=== PATIENT | female | born 1940 | race Caucasian/White ===

== ENCOUNTER → 2024-08-16 10:52 | Outpatient (REF) | payer MEDICARE, OTHER, SELFPAY | LOC: RAD 10:52 | PROVIDERS: ATTENDING PHYSICIAN Physician Assistant Medical; OTHER PHYSICIAN Anesthesiology Pain Medicine | DX: M54.16 Radiculopathy, lumbar region (principal); G89.29 Other chronic pain | CPT/HCPCS: 72072; 72110; 73502 ==

== ENCOUNTER 2024-10-25 08:19 | Emergency (ER) | payer MEDICARE, OTHER, SELFPAY ==
[2024-10-25 08:26] LABS: Glucose - Point of Care 169 mg/dl (70-99)
[2024-10-25 08:27] VITALS: BP 148/62
[2024-10-25 08:49] LABS: Hematocrit 40.4 % (37.0-47.0); Hemoglobin 13.6 g/dL (12.0-16.0); Mean Corp Hgb Conc. 33.7 g/dL (33.0-37.0); Mean Corpuscular Volume 100.2 fL (81.0-99.0); Nucleated Red Blood Cells % 0 %; Platelet Count 221 10^3/uL (130-400); Red Cell Dist. Width 15.3 % (11.5-14.5); Urine Character Clear (Clear)
--- NOTE | 2024-10-25 08:52 | ED.GENMED ---
History of Present Illness
General
Chief Complaint: Change Level of Consciousness
Source: patient, family and ambulance crew
Exam Limitations: none
Time Seen by Provider: 10/25/24 08:27
Nursing documentation reviewed up to this point in time: agreed with
History of Present Illness
History of Present Illness:
83-year-old female presenting to the emergency department from home after she did not episode where she was not answering questions from her brother. Patient does have early dementia according to the brother this morning woke up was acting herself
and was able to get dressed and come down for breakfast. She has had elevated sugar levels over the past few days and recently restarted her insulin after the mother spoke with the airport operations coordinator yesterday. Additionally restarted her blood
pressure medications yesterday, hydralazine that she had not taken for multiple weeks. During breakfast she did not respond but otherwise did not appear to be in any distress for roughly 15 minutes and then EMS was called. She is not responding
and answering all questions. She claims that during the event she was aware what was going on but did not want to answer questions because she was 'sick of it'
Review of Systems
Review of Systems
Allergies reviewed?: Yes
All Other Systems: ROS reviewed and negative except as documented in HPI and ROS
Phy Exam
Physical Exam
Physical Exam:
GENERAL: Alert , in no apparent distress
EYE: pupils equal and reactive
NECK: Supple, no significant adenopathy.
ENT: o/p clr, mmm.
CARDIAC: Regular rate and rhythm .
LUNGS: Clear breath sounds bilaterally, no acute respiratory distress, no wheezes/rales/rhonchi
ABDOMEN: Soft, without focal tenderness, no r/g, no cvat
NEUROLOGICAL: Alert and oriented, no focal neuro deficits
SKIN: Warm and dry, skin intact.
MUSCULOSKELETAL: No edema, well perfused.
PSYCH: Normal and appropriate interaction.
Course
Orders/Labs/Results
Orders:
Orders
10/25/24 08:26
EKG [Electrocardiogram (*1)] Urgent
Reason for Study: Vertigo / Dizzy
10/25/24 08:27
EKG- Treatment ONCE
10/25/24 08:34
Complete Blood Count/With Diff Urgent
Comprehensive Metabolic Panel Urgent
Urinalysis Reflex To Culture Urgent
Date Specimen was Collected: 10/25/24
Time Specimen was Collected: 08:31
Urine Microscopic Reflex Cult Urgent
10/25/24 08:48
CT Head W/o Iv Contrast Urgent
Comment:
Reason For Exam: AMS
Abnormal Lab Results
10/25/24 10/25/24
08:24 08:34
WBC 12.4 H 10^3/uL
(4.8-10.8)
RBC 4.03 L 10^6/uL
(4.20-5.40)
MCV 100.2 H fL
(81.0-99.0)
MCH 33.7 H pg
(27.0-31.0)
RDW 15.3 H %
(11.5-14.5)
Absolute Neuts (auto) 8.6 H 10^3/uL
(1.4-6.5)
Absolute Monos (auto) 1.2 H 10^3/uL
(0.1-0.6)
Lymphocytes % 19.5 L %
(20.5-51.1)
BUN 53 H mg/dl
(7-17)
Creatinine 1.1 H mg/dL
(0.6-1.0)
Glucose 231 H mg/dl
(70-99)
Urine Glucose 1+ A
(Negative)
Urine Albumin (Reflex) 2+ A
(Neg - Trace)
POC Glucose 169 H mg/dl
(70-99)
10/25/24 08:34
10/25/24 08:34
Vital Signs
Initial and Last Documented VS:
Initial Vital Signs
Temp Pulse Resp Pulse Ox
97.6 F 61 18 98
10/25/24 08:24 10/25/24 08:24 10/25/24 08:24 10/25/24 08:24
Last Documented Vital Signs
Temp Pulse Resp BP Pulse Ox
97.6 F 61 11 138/55 98
10/25/24 08:24 10/25/24 11:15 10/25/24 11:15 10/25/24 11:00 10/25/24 11:15
MDM/Problems Addressed
MDM/Problems Addressed:
83-year-old female presenting to the emergency department today with concerns of an episode where she was not answering questions this morning. Has had some difficulty with control of her blood pressure and sugar levels over the past few days. On
arrival of EMS her blood pressure was in the 90s over 60s sugar level in the 100s. Vital signs normal on arrival patient no distress answering all questions here she claims that she was aware when she was not answering questions and claims that she
decided to not answer questions due to her brother asking 'too many'. Otherwise here at reassessment patient feeling much better back to her normal self labs without any specific emergent findings other than potentially a slight dehydration, CT
scan was normal was able to drink fluids here otherwise stable for discharge return precautions given.
*Pulse Oximetry
SaO2: 98
Oxygen Mode of Delivery: Room air
Patient hypoxic: no (98)
*Critical Care Note
Total Time (30-74mins, 75-104mins- exclusive of procedures): Not Applicable
ED Attending Note
-
Portions of this chart may have been created with voice recognition software.� Occasional wrong word or��sound alike� substitutions may have occurred due to the inherent limitations of voice recognition software.
Discharge Plan
Departure
Patient Disposition: Home (Routine Discharge)
Date of Disposition: 10/25/24
Time of Disposition: 11:40
Patient with high blood pressure during this ER visit?: No
Condition: Good
Covid-19: Not Applicable
Discharge Problem:
AMS (altered mental status)
Instructions: Altered Mental Status (DC)
Prescriptions:
No Action
hydralazine 25 mg Tablet
25 mg PO TID
garlic 300 mg Capsule
300 mg PO DAILY
atorvastatin [Lipitor] 80 mg Tablet
80 mg PO HS
acetaminophen [Tylenol] 325 mg Tablet
650 mg PO Q6HPRN PRN (Reason: mild pain)
carvedilol [Coreg] 6.25 mg Tablet
6.25 mg PO BID
trazodone 50 mg Tablet
50 mg PO HS
clopidogrel [Plavix] 75 mg Tablet
75 mg PO DAILY
tramadol 50 mg Tablet
50 mg PO BID
pramipexole 0.5 mg Tablet
0.5 mg PO HS
fosinopril 40 mg Tablet
40 mg PO DAILY
cholecalciferol (vitamin D3) [Vitamin D3] 50 mcg (2,000 unit) Tablet
50 mcg PO DAILY
PreserVision AREDS 2,148 mcg-113 mg-45 mg-17.4mg Tablet
1 tab PO DAILY
melatonin 10 mg Tablet
20 mg PO HS
mirabegron [Myrbetriq] 50 mg Tablet Extended Release 24 Hr
50 mg PO DAILY
Patient Own Insulins Pump
1 sliding scale dose SC .VIA NOVOLOG
pantoprazole [Protonix] 40 mg Tablet,Delayed Release (Dr/Ec)
40 mg PO HS
levothyroxine [Synthroid] 150 mcg Tablet
150 mcg PO SUMOTUTHFRSA
levothyroxine [Synthroid] 150 mcg Tablet
75 mcg PO WE
gabapentin 300 mg Capsule
300 mg PO HS
Referrals:
Ruy Kirkland PA-C [Family Provider, Family Practice]
Activity Restrictions/Additional Instructions:
You came to the emergency department today with concerns of an episode of altered mental status. Here you have a reassuring assessment. Please feel closely with the primary care doctor. Return for any worsening, new or concerning symptoms.
Interventions
Interventions:
*Risk Screen - Suicide Last Done: 10/25/24 10:25
*General Assessment Last Done: 10/25/24 10:25
*Neglect/Abuse Screening Last Done: 10/25/24 10:25
*ED COVID-19 Vaccine History Last Done: 10/25/24 11:24
ED- Cardiac Assessment Last Done: 10/25/24 10:25
ED- Neurological Assessment Last Done: 10/25/24 10:25
ED-Psychological Assessment Last Done: 10/25/24 10:26
ED- Pulmonary Assessment Last Done: 10/25/24 10:25
Discharge Date and Time
Print Language: GUYANESE
[2024-10-25 09:00] LABS: ALT (SGPT) 24 U/L (0-35); AST (SGOT) 29 U/L (14-36); Albumin 4.3 g/dl (3.5-5.0); Alkaline Phosphatase 72 U/L (38-126); Blood Urea Nitrogen 53 mg/dl (7-17); Calcium 10.0 mg/dl (8.4-10.2); Carbon Dioxide 29 mmol/L (22-30); Chloride 100 mmol/L (98-107); Glucose 231 mg/dl (70-99); Potassium 4.3 mmol/L (3.5-5.1); Sodium 135 mmol/L (135-145); Total Protein 7.2 g/dl (6.3-8.2); eGFR 49.55
[2024-10-25 09:08] LABS: Urine Red Blood Cell 0-2 /HPF (0-2); Urine White Cell 0-2 /HPF (0-5)
[2024-10-25 10:00] VITALS: BP 122/77
[2024-10-25 10:04] VITALS: BP 135/65
[2024-10-25 11:00] VITALS: BP 138/55
== END 2024-10-25 11:52 | disposition home or self-care (01) ==
LOC: EMR 08:19
PROVIDERS: Physician Assistant; EMERGENCY PHYSICIAN Student in an Organized Health Care Education/Training Program; FAMILY PHYSICIAN Physician Assistant Medical
DX: R41.82 Altered mental status, unspecified (principal); F03.90 Unspecified dementia, unspecified severity, without behavioral disturbance, psychotic disturbance, mood disturbance, and anxiety
CPT/HCPCS: 99285; 70450; 80053; 81003; 81015; 82962; 85025; 93005

== ENCOUNTER → 2024-10-31 13:22 | Outpatient (REF) | payer MEDICARE, OTHER, SELFPAY | LOC: RAD 13:22 | PROVIDERS: ATTENDING PHYSICIAN Physician Assistant Medical | DX: M25.431 Effusion, right wrist (principal) | CPT/HCPCS: 73110 ==

== ENCOUNTER → 2024-12-11 10:57 | Outpatient (REF) | payer MEDICARE, OTHER, SELFPAY | LOC: RCS 10:57 | PROVIDERS: ATTENDING PHYSICIAN Student in an Organized Health Care Education/Training Program; FAMILY PHYSICIAN Physician Assistant Medical | DX: I21.9 Acute myocardial infarction, unspecified (principal) | CPT/HCPCS: 93306 ==

== ENCOUNTER → 2025-01-22 10:11 | Outpatient (REF) | payer MEDICARE, OTHER, SELFPAY | LOC: RAD 10:11 | PROVIDERS: ATTENDING PHYSICIAN Physician Assistant Medical | DX: M81.0 Age-related osteoporosis without current pathological fracture (principal) | CPT/HCPCS: 77080 ==